=== PATIENT | male | born 1995 | race Hispanic/Latino ===

== ENCOUNTER 2016-08-29 15:33 | Inpatient (IN) | payer OTHER ==
--- NOTE | 2016-08-29 16:56 | C.PDOC ---
History Of Present Illness 20 year old patient, with no significant past medical history, presents to the ED complaining of a lump to the lateral aspect of the right lip for the past 2 years. Patient states it became inflamed a few weeks ago. He finished a course of Keflex and Bactrim without improvement. He was told to follow up with surgery. He was seen by Dr. Aguirre this morning and sent home. While eating, he pressed his tongue against the lump from inside of the mouth. He notes white pus coming out of the lump. Patient denies fever, shortness of breath, throat swelling, nausea, or vomiting. Time Seen by Provider: 08/29/16 16:10 Chief Complaint (Nursing): Abnormal Skin Integrity History Per: Patient History/Exam Limitations: no limitations Onset/Duration Of Symptoms: Worse Since (few weeks) Current Symptoms Are (Timing): Still Present Quality Of Symptoms: Swollen, Draining Severity: Mild Pain Scale Rating Of: 3 Recent travel outside of the [place]: No Past Medical History Reviewed: Historical Data, Nursing Documentation, Vital Signs Vital Signs: Last Vital Signs Temp 98 F 08/29/16 15:40 Pulse 70 08/29/16 15:40 Resp 18 08/29/16 15:40 BP 124/80 08/29/16 15:40 Pulse Ox 95 08/29/16 17:36 - [facility] Procedures TETANUS TOXOID ADMINIST (08/11/14) Family History: States: Unknown Family Hx - Social History Hx Alcohol Use: Yes Hx Substance Use: Yes - Immunization History Hx Tetanus Toxoid Vaccination: No Hx Influenza Vaccination: No Hx Pneumococcal Vaccination: No Review Of Systems Except As Marked, All Systems Reviewed And Found Negative. Constitutional: Negative for: Fever ENT: Positive for: Other (lump to lateral aspect of right lip with pus). Negative for: Throat Swelling Respiratory: Negative for: Shortness of Breath Gastrointestinal: Negative for: Nausea, Vomiting Physical Exam - Physical Exam Appears: Non-toxic, No Acute Distress Skin: Warm, Dry Head: Atraumatic, Normacephalic Eye(s): bilateral: Normal Inspection, EOMI Ear(s): Bilateral: Normal Nose: Normal Oral Mucosa: Moist Lips: Other (2 cm round, firm, tender, mass to the lateral aspect of the right corner of the lips with thick, white discharge when expressed; mild surrounding erythema) Throat: Normal Neck: Normal ROM, Supple Chest: Symmetrical Cardiovascular: Rhythm Regular Respiratory: Normal Breath Sounds, No Rales, No Rhonchi, No Wheezing Gastrointestinal/Abdominal: Soft, No Tenderness Back: Normal Inspection Extremity: Normal ROM Neurological/Psych: Oriented x3, Normal Speech, Normal Cognition Gait: Steady ED Course And Treatment - Laboratory Results Result Diagrams: 08/29/16 17:02 08/29/16 17:03 O2 Sat by Pulse Oximetry: 95 (room air) Pulse Ox Interpretation: Normal Progress Note: Plan: Labs, Rocephin, Toradol. Case discussed with Dr. Aguirre who wants the patient to be admitted for infected facial mass. He is requesting an infectious disease (Lavell Billy) and medical (Dr. Siddiqi) consult. Medical Decision Making Medical Decision Making: discussed with Dr Aguirre; will admit to his service. He requests medical and id consults;. message left for Dr Campos with office; discussed with Dr Siddiqi, medical artist notififed. [address] Campos; 2 sets bc, wound culture and mrsa screen requested. rocephin 1 gram q 12 hours requested. first dose ordered. Disposition Discussed With Dr.: Anjel Aguirre Doctor Will See Patient In The: Hospital - Disposition Disposition Time: 17:20 Condition: STABLE - Clinical Impression Clinical Impression: Acute abscess of face - PA / PAYROLL SPECIALIST / Resident Statement MD/DO has reviewed & agrees with the documentation as recorded. - Scribe Statement The provider has reviewed the documentation as recorded by the Scribe Iram Mixon All medical record entries made by the Scribe were at my direction and personally dictated by me. I have reviewed the chart and agree that the record accurately reflects my personal performance of the history, physical exam, medical decision making, and the department course for this patient. I have also personally directed, reviewed, and agree with the discharge instructions and disposition. Decision To Admit - Pt Status Changed To: Hospital Disposition Of: Observation - . Bed Request Type: Regular Patient Diagnosis: Acute abscess of face
[2016-08-29 17:12] LABS: BASO % 0.7 % (0.0-2.0); EOS # 0.2 K/uL (0.0-0.7); EOS % 2.4 % (0.0-4.0); HEMATOCRIT 43.4 % (35.0-51.0); LYMPH # 1.1 K/uL (1.0-4.3); LYMPH % 16.5 % (20.0-40.0); MEAN CELL VOLUME 85.5 fL (80.0-94.0); MEAN CORPUSCULAR HEMOGLOBIN 28.6 pg (27.0-31.0); MEAN CORPUSCULAR HGB CONC 33.4 g/dL (33.0-37.0); MEAN PLATELET VOLUME 9.7 fL (7.2-11.7); MONO # 0.7 K/uL (0.0-0.8); MONO % 9.8 % (0.0-10.0); RED CELL DISTRIBUTION WIDTH 13.6 % (11.5-14.5); WHITE BLOOD COUNT 6.8 K/uL (4.8-10.8)
[2016-08-29 17:20] LABS: CHLORIDE 100 mmol/L (98-107); POTASSIUM 4.6 mmol/L (3.6-5.2); SODIUM 134 mmol/L (132-148)
[2016-08-29 17:23] LABS: BLOOD UREA NITROGEN 14 mg/dL (9-20); CARBON DIOXIDE 26 mmol/L (22-30); GFR AFRICAN-AMERICAN > 60; GLUCOSE,RANDOM 115 mg/dL (75-110)
[2016-08-29 17:24] LABS: CALCIUM 8.4 mg/dl (8.6-10.4)
[2016-08-29] MEDS ORDERED: cefTRIAXone IV 1 gm in Dextros 50 ML IVPB ONE (17:45)
--- NOTE | 2016-08-29 19:00 | CP.PCM.CON ---
History of Present Illness - History of Present Illness History of Present Illness: INFECTIOUS DISEASE CONSULT; 20 year old patient, with no significant past medical history, presents to the ED complaining of a lump to the lateral aspect of the right lip/CHEEK for the past 2 years. Patient states it became inflamed a few weeks ago. He finished a course of Keflex and Bactrim without improvement. He was told to follow up with surgery. He was seen by Dr. Rodriguez this morning and sent home. While eating, he pressed his tongue against the lump from inside of the mouth. He notes white pus coming out of the lump. Patient denies fever, shortness of breath, throat swelling, nausea, or vomiting. INFECTIOUS DISEASE CONSULTATION REQUESTED BY DR. RODRIGUEZ. CASE DISCUSSED WITH PHYSICIAN SWEAT BAND SEPARATOR YOUSIF DIETZ AND STARTED ON iv' CEFTRIAXONE 1 G EVERY 12 HOURLY AND CLEOCIN 600 EVERY 8 HOURLY. 08/29/16 AFTER APPROPRIATE CULTURES. PMHx: denies Home medications: denies Past Surgical Hx: Myotomy for congenital pyloric stenosis (at 5 weeks old) Social Hx: reports smoking about 8 cigarettes/day, reports having a few alcoholic drinks one day a week, denies hx of illicit drug abuse works in a [employer]. IMMUNIZATION TETANUS TOXOID ADMINIST (08/11/14) ALLERGY; NKA Family History: States:AUNT -DM. mother-heart disease - Social History Hx Alcohol Use: Yes Hx Substance Use: Yes - Immunization History Hx Tetanus Toxoid Vaccination: No Hx Influenza Vaccination: No Hx Pneumococcal Vaccination: No Review of Systems - Constitutional Constitutional: absent: Chills, Fever - EENT Ears: absent: Ear Discharge, Ear Pain Nose/Mouth/Throat: Facial Pain (SMALL CYSTIC LESION RT RIGHT LOWER CHEEK NEXT TO THE LIP +VE DRESSING IN PLACE.). absent: Bleeding Gums, Change in Voice, Dental Pain, Sore Throat - Cardiovascular Cardiovascular: absent: Chest Pain, Dyspnea - Respiratory Respiratory: absent: Cough, Change in Mucous Color - Gastrointestinal Gastrointestinal: absent: Abdominal Pain, Diarrhea, Nausea, Vomiting - Genitourinary Genitourinary: absent: Dysuria, Freq UTI - Musculoskeletal Musculoskeletal: As Per HPI - Integumentary Integumentary: Wounds (RIGHT LOWER CHEEK NEXT TO THE LIP. POSITIVE DRESSING.) - Neurological Neurological: absent: Abnormal Speech, Headaches - Hematologic/Lymphatic Hematologic: As Per HPI. absent: Easy Bruising, Lymphadenopathy Past Patient History - Past Social History Smoking Status: Heavy Smoker > 10 Cigarettes Daily - PSYCHIATRIC Hx Substance Use: Yes - SURGICAL HISTORY Hx Surgeries: Yes Other/Comment: cyst removal, right eye. stomach surgery as infant - ANESTHESIA Hx Anesthesia: Yes Hx Anesthesia Reactions: No Meds Allergies/Adverse Reactions: Allergies Allergy/AdvReac Type Severity Reaction Status Date / Time No Known Allergies Allergy Verified 08/12/14 00:28 - Medications Medications: Current Medications Ceftriaxone Sodium 1 gm/ (Sodium Chloride) 100 mls @ 100 mls/hr IVPB Q12H [facility] Clindamycin Phosphate (Cleocin) 600 mg in 50 mls @ 102 mls/hr IVPB Q8H [facility] Physical Exam - Constitutional Appears: No Acute Distress - Head Exam Head Exam: NORMAL INSPECTION - Eye Exam Eye Exam: EOMI, PERRL - ENT Exam ENT Exam: Mucous Membranes Moist, Normal Oropharynx (RT.CHEEK ABSCESS/MASS- DRAINING SEROPURULENT DRAINAGE.) - Neck Exam Neck exam: Negative for: Lymphadenopathy, Normal Inspection, Tenderness, Thyromegaly - Respiratory Exam Respiratory Exam: Clear to Auscultation Bilateral, NORMAL BREATHING PATTERN - Cardiovascular Exam Cardiovascular Exam: REGULAR RHYTHM, +S1, +S2 - GI/Abdominal Exam GI & Abdominal Exam: Normal Bowel Sounds, Soft - Extremities Exam Extremities exam: Positive for: pedal pulses present. Negative for: calf tenderness, pedal edema - Neurological Exam Neurological exam: Alert, CN II-XII Intact, Normal Gait, Oriented x3, Reflexes Normal - Psychiatric Exam Psychiatric exam: Normal Mood - Skin Skin Exam: Normal Color, Warm Results - Vital Signs Recent Vital Signs: Last Vital Signs Temp 98.4 F 08/29/16 18:06 Pulse 60 08/29/16 18:06 Resp 19 08/29/16 18:06 BP 115/72 08/29/16 18:06 Pulse Ox 95 08/29/16 18:14 - Labs Result Diagrams: 08/30/16 08:05 08/30/16 08:05 Assessment & Plan (1) Acute abscess of face Status: Acute - Assessment and Plan (Free Text) Plan: pancultures esr,crp MRSA SCREEN. START iv ROCEPHIN 1 G EVERY 12 HOURLY 08/29/16 START iv cLEOCIN 600 MG EVERY 12 HOURLY 08/29/16. PATIENT FOR INCISION AND DRAINAGE IN A.M. fOLLOW-UP CULTURES TO ADJUST ANTIBIOTICS. CASE DISCUSSED WITH THE STAFF AND ER PA
[2016-08-29] MEDS ORDERED: Clindamycin 600mg/50ml D5W 600 MG/50 ML VIAL IVPB ONE (20:16)
[2016-08-29] MEDS ORDERED: HYDROmorphone 1 mg/ml ISec ONE (20:21)
[2016-08-29] MEDS: HYDROmorphone 1 mg/ml ISec IVP PRN (20:22)
[2016-08-29] MEDS: Clindamycin 600mg/50ml D5W 600 MG/50 ML VIAL IVPB SCH (20:23)
--- NOTE | 2016-08-29 21:52 | CP.PCM.HP ---
Past Patient History - Past Social History Smoking Status: Heavy Smoker > 10 Cigarettes Daily - PSYCHIATRIC Hx Substance Use: Yes - SURGICAL HISTORY Hx Surgeries: Yes Other/Comment: cyst removal, right eye. stomach surgery as - ANESTHESIA Hx Anesthesia: Yes Hx Anesthesia Reactions: No Meds Allergies/Adverse Reactions: Allergies Allergy/AdvReac Type Severity Reaction Status Date / Time No Known Allergies Allergy Verified 08/12/14 00:28 Results - Vital Signs Recent Vital Signs: Last Vital Signs Temp 98.0 F 08/29/16 20:39 Pulse 71 08/29/16 20:39 Resp 16 08/29/16 20:39 BP 157/73 H 08/29/16 20:39 Pulse Ox 97 08/29/16 20:39 - Labs Result Diagrams: 08/29/16 17:02 08/29/16 17:03 Labs: Laboratory Results - last 24 hr 08/29/16 08/29/16 19:09 19:09 ESR 7 C-React Prot High Sens > 15.00 H
--- NOTE | 2016-08-29 22:06 | CP.PCM.CON ---
History of Present Illness - History of Present Illness History of Present Illness: CC: 'abscess on right cheek' HPI: Pt is a 20 year old male with no reported past medical history who presented to ED with complaints of an abscess on his right cheek as per the recommendations of surgeon, Dr. Aguirre. Pt reports that he had a red blister on his right cheek that had been growing for the past 2 years. He reports that recently the blister had opened and had been draining pus and blood. The pt reports that he never had insurance so he was unable to have a procedure done to drain it. He reports has had taken antibiotics in the past but they failed to clear the abscess. He reports that he went to the office of Dr. Aguirre who advised him to go the hospital. Pt denies fever, chills, chest pain, shortness of breath, nausea, and vomiting. PMHx: denies Home medications: denies Allergies: NKDA Past Surgical Hx: Myotomy for congenital pyloric stenosis (at 5 weeks old) Social Hx: reports smoking about 8 cigarettes/day, reports having a few alcoholic drinks one day a week, denies hx of illicit drug abuse Family Hx: Heart Disease (mother) Review of Systems - Constitutional Constitutional: absent: Chills, Fever - EENT Eyes: absent: Blurred Vision, Discharge Ears: absent: Ear Pain Nose/Mouth/Throat: absent: Nasal Congestion - Cardiovascular Cardiovascular: absent: Chest Pain, Dyspnea, Leg Edema - Respiratory Respiratory: absent: Cough, Wheezing - Gastrointestinal Gastrointestinal: absent: Nausea, Vomiting - Genitourinary Genitourinary: absent: Dysuria - Musculoskeletal Musculoskeletal: absent: Arthralgias, Back Pain - Integumentary Integumentary: Furuncle - Neurological Neurological: absent: Abnormal Gait, Abnormal Hearing - Psychiatric Psychiatric: absent: Abnormal Sleep Pattern, Behavioral Changes, Change in Appetite - Hematologic/Lymphatic Hematologic: absent: Easy Bleeding Past Patient History - Past Social History Smoking Status: Heavy Smoker > 10 Cigarettes Daily - PSYCHIATRIC Hx Substance Use: Yes - SURGICAL HISTORY Hx Surgeries: Yes Other/Comment: cyst removal, right eye. stomach surgery as infant - ANESTHESIA Hx Anesthesia: Yes Hx Anesthesia Reactions: No Meds Allergies/Adverse Reactions: Allergies Allergy/AdvReac Type Severity Reaction Status Date / Time No Known Allergies Allergy Verified 08/12/14 00:28 - Medications Medications: Current Medications Hydromorphone HCl (Dilaudid) 1 mg IVP Q4H PRN PRN Reason: Pain, severe (8-10) Last Admin: 08/29/16 20:22 Dose: 1 mg Ceftriaxone Sodium 1 gm/ (Sodium Chloride) 100 mls @ 100 mls/hr IVPB Q12H [facility] Last Admin: 08/29/16 19:02 Dose: Not Given Clindamycin Phosphate (Cleocin) 600 mg in 50 mls @ 102 mls/hr IVPB Q8H [facility] Last Admin: 08/29/16 20:23 Dose: 102 mls/hr Sodium Chloride (Sodium Chloride 0.9%) 1,000 mls @ 100 mls/hr IV .Q10H [facility] Physical Exam - Constitutional Appears: No Acute Distress - Head Exam Head Exam: ATRAUMATIC, NORMOCEPHALIC - Eye Exam Eye Exam: EOMI - ENT Exam ENT Exam: Mucous Membranes Moist. absent: Mucous Membranes Dry - Respiratory Exam Respiratory Exam: Clear to Auscultation Bilateral. absent: Rales, Rhonchi, Wheezes - Cardiovascular Exam Cardiovascular Exam: +S1, +S2. absent: Gallop, Rubs - GI/Abdominal Exam GI & Abdominal Exam: Soft. absent: Distended, Tenderness - Extremities Exam Extremities exam: Positive for: full ROM. Negative for: pedal edema - Neurological Exam Neurological exam: Alert, Oriented x3 - Psychiatric Exam Psychiatric exam: Normal Affect - Skin Additional comments: Right cheek abscess, erythematous, nondraining Results - Vital Signs Recent Vital Signs: Last Vital Signs Temp 98.0 F 08/29/16 20:39 Pulse 71 08/29/16 20:39 Resp 16 08/29/16 20:39 BP 157/73 H 08/29/16 20:39 Pulse Ox 97 08/29/16 20:39 - Labs Result Diagrams: 08/29/16 17:02 08/29/16 17:03 Labs: Laboratory Results - last 24 hr 08/29/16 08/29/16 19:09 19:09 ESR 7 C-React Prot High Sens > 15.00 H Assessment & Plan - Assessment and Plan (Free Text) Assessment: Right cheek abscess: Afebrile, nontachycardic No leukocytosis Plan is for I&D tomorrow as per Dr. Aguirre NPO after midnight ID, Dr. Daniel Campos, consulted. Help appreciated. Clindamycin 600 mg IV q8h Wound cultures, blood cultures pending Prophylactic Measures: DVT: SCDs GI: Protonix 40 mg po qd
[2016-08-29] MEDS: Sodium Chloride 0.9% 1,000 ML IV SCH (23:02)
[2016-08-30] MEDS: HYDROmorphone 1 mg/ml ISec IVP PRN ×4 (01:12→22:13)
[2016-08-30] MEDS: Clindamycin 600mg/50ml D5W 600 MG/50 ML VIAL IVPB SCH ×3 (03:56→18:05)
--- NOTE | 2016-08-30 07:22 | CP.PCM.PN ---
<Jackie Sal - Last Filed: 08/30/16 13:20> Subjective - Date & Time of Evaluation Date of Evaluation: 08/30/16 Time of Evaluation: 09:45 - Subjective Subjective: PGY1 Medicine note for Dr. Siddiqi Patient seen and examined at bedside. Patient has been NPO overnight for OR today with Dr. Aguirre for I&D of abscess. Patient denied much pain at area unless it is touched. He reports that it was squeezed to express some purulent discharge in the ED but it did not drain overnight. Patient denied any headaches , dizziness, fever, chills, chest pain, palpitations, shortness of breath, cough , abdominal pain, nausea, vomiting, bowel/bladder complaints, pain in his legs bilaterally. Objective - Vital Signs/Intake and Output Vital Signs (last 24 hours): Temp Pulse Resp BP Pulse Ox 98.4 F 64 20 118/72 97 08/30/16 00:00 08/30/16 00:00 08/30/16 00:00 08/30/16 00:00 08/29/16 20:39 Intake and Output: 08/30/16 08/30/16 06:59 18:59 Intake Total 800 Balance 800 - Medications Medications: Current Medications Hydromorphone HCl (Dilaudid) 1 mg IVP Q4H PRN PRN Reason: Pain, severe (8-10) Last Admin: 08/30/16 01:12 Dose: 1 mg Ceftriaxone Sodium 1 gm/ (Sodium Chloride) 100 mls @ 100 mls/hr IVPB Q12H [facility] Last Admin: 08/30/16 06:46 Dose: 100 mls/hr Clindamycin Phosphate (Cleocin) 600 mg in 50 mls @ 102 mls/hr IVPB Q8H [facility] Last Admin: 08/30/16 03:56 Dose: 102 mls/hr Sodium Chloride (Sodium Chloride 0.9%) 1,000 mls @ 100 mls/hr IV .Q10H [facility] Last Admin: 08/29/16 23:02 Dose: 100 mls/hr Pneumococcal Polyvalent Vaccine (Pneumovax 23 Vaccine) 0.5 ml IM .ONCE ONE Stop: 08/31/16 10:01 - Labs Labs: PT 11.4 SECONDS (9.7-12.2) 08/29/16 17:02 INR 1.0 08/29/16 17:02 APTT 35 SECONDS (21-34) H 08/29/16 17:02 - Constitutional Appears: Non-toxic, No Acute Distress - Head Exam Head Exam: ATRAUMATIC, NORMAL INSPECTION, NORMOCEPHALIC - Eye Exam Eye Exam: EOMI, Normal appearance, PERRL. absent: Conjunctival injection, Scleral icterus Pupil Exam: NORMAL ACCOMODATION - ENT Exam ENT Exam: Mucous Membranes Moist - Neck Exam Neck Exam: Normal Inspection. absent: Lymphadenopathy, Tenderness - Respiratory Exam Respiratory Exam: Clear to Ausculation Bilateral, NORMAL BREATHING PATTERN. absent: Accessory Muscle Use, Rales, Rhonchi, Wheezes, Respiratory Distress - Cardiovascular Exam Cardiovascular Exam: REGULAR RHYTHM, RRR, +S1, +S2 - GI/Abdominal Exam GI & Abdominal Exam: Soft, Normal Bowel Sounds. absent: Firm, Guarding, Rigid, Tenderness - Rectal Exam Rectal Exam: Deferred - Extremities Exam Extremities Exam: Normal Capillary Refill, Normal Inspection. absent: Pedal Edema, Tenderness - Back Exam Back Exam: NORMAL INSPECTION. absent: rash noted - Neurological Exam Neurological Exam: Alert, Awake, Oriented x3 - Psychiatric Exam Psychiatric exam: Normal Affect, Normal Mood - Skin Skin Exam: Dry, Erythema (abscess on right corner of lips- mild), Intact, Normal Color, Warm Additional comments: 2 cm round, firm, tender, mass to the lateral aspect of the right corner of the lips Assessment and Plan - Assessment and Plan (Free Text) Assessment: 20 year old male with no reported past medical history who presented to ED with complaints of an abscess on his right cheek Plan: Right cheek abscess: -Afebrile with no leukocytosis -For I&D with Dr. Aguirre 08/31 -Rocephin IVPB Q12 -Clindamycin 600mg IVPB Q8 -Dilaudid 1mg IVP Q4 for pain -NS @ 100cc/hr -f/u wound culture -f/u blood culture x 2 -ID Dr. Daniel Campos on board -Surgery Dr. Aguirre on board Prophylactic Measures: -SCDs -Protonix 40 mg po qd -NPO past midnight for procedure -VTE ppx held for procedure Will discuss plan with Dr. Neeru Sal PGY1 <Boo Siddiqi Jr. - Last Filed: 09/04/16 10:03> Objective - Vital Signs/Intake and Output Vital Signs (last 24 hours): Temp Pulse Resp BP Pulse Ox 98.1 F 58 L 20 115/68 96 09/01/16 08:13 09/01/16 08:30 09/01/16 08:13 09/01/16 08:13 09/01/16 08:13 - Labs Labs: 09/01/16 07:07 09/01/16 07:07 PT 11.4 SECONDS (9.7-12.2) 08/29/16 17:02 INR 1.0 08/29/16 17:02 APTT 35 SECONDS (21-34) H 08/29/16 17:02 Attending/Attestation - Attestation I have personally seen and examined this patient.: Yes I have fully participated in the care of the patient.: Yes I have reviewed all pertinent clinical information, including history, physical exam and plan: Yes Notes (Text): 09/04/16 10:03 Agree with resident note and findings
[2016-08-30] MEDS: Sodium Chloride 0.9% 1,000 ML IV SCH ×2 (08:02→22:26)
[2016-08-30 08:24] LABS: BASO % 0.5 % (0.0-2.0); EOS # 0.2 K/uL (0.0-0.7); HEMATOCRIT 41.6 % (35.0-51.0); LYMPH # 1.7 K/uL (1.0-4.3); LYMPH % 20.9 % (20.0-40.0); MEAN CELL VOLUME 86.1 fL (80.0-94.0); MEAN CORPUSCULAR HEMOGLOBIN 28.8 pg (27.0-31.0); MEAN CORPUSCULAR HGB CONC 33.5 g/dL (33.0-37.0); MONO # 0.8 K/uL (0.0-0.8); MONO % 10.3 % (0.0-10.0); NRBC % 0.1 % (0.0-2.0); RED CELL DISTRIBUTION WIDTH 13.3 % (11.5-14.5); WHITE BLOOD COUNT 8.1 K/uL (4.8-10.8)
[2016-08-30 09:16] LABS: CHLORIDE 101 mmol/L (98-107); POTASSIUM 4.3 mmol/L (3.6-5.2)
[2016-08-30 09:18] LABS: AST/SGOT 43 U/L (17-59); BILIRUBIN,TOTAL 0.5 mg/dL (0.2-1.3); CARBON DIOXIDE 22 mmol/L (22-30); GFR AFRICAN-AMERICAN > 60
[2016-08-30 09:19] LABS: ALB/GLOB RATIO 1.5 (1.0-2.1); ALKALINE PHOSPHATASE 59 U/L (38-126); ALT/SGPT 29 U/L (21-72); BLOOD UREA NITROGEN 10 mg/dL (9-20); CALCIUM 7.8 mg/dl (8.6-10.4); GLUCOSE,RANDOM 87 mg/dL (75-110); MAGNESIUM 1.9 mg/dL (1.6-2.3); PHOSPHOROUS 3.7 mg/dL (2.5-4.5); TOTAL PROTEIN 5.9 g/dL (6.3-8.3)
[2016-08-30 09:32] LABS: SODIUM 134 mmol/L (132-148)
[2016-08-30] MEDS ORDERED: Propofol 10 mg/ml Inj (20 ML) ONE (14:33)
[2016-08-30] MEDS ORDERED: Midazolam 2 MG/2 ML VIAL ONE (14:33)
[2016-08-30] MEDS ORDERED: HYDROmorphone 0.5 mg/0.5 ml ISec ONE (15:13)
[2016-08-30] MEDS: HYDROmorphone 0.5 mg/0.5 ml ISec IVP PRN ×2 (15:14→15:29)
--- NOTE | 2016-08-30 15:47 | OP ---
PROCEDURE DATE: 08/30/2016 PREOPERATIVE DIAGNOSIS: Abscess of the face. POSTOPERATIVE DIAGNOSIS: Abscess of the face. PROCEDURE PERFORMED: Excision of infected mass of the face with drainage of abscess and partial tiss ue transfer closure. SURGEON: Anjel Aguirre MD ANESTHESIA: General. BLOOD LOSS: 40 mL. POSTOPERATIVE CONDITION: Stable. PROCEDURE: The patient taken to the operating room were general anesthesia was administered, and the right cheek and lip area were prepped and draped. There was an abscess located just lateral to the right side of the lip which was almost a golf ball size mass yesterday but had decreased dramatically sense it had spontaneously drained. The opening on the anterior portion of the face was widened usi ng a clamp and pus, blood and cystic material all were expelled. The cyst material was aggressively removed from the wound until the wound was completely clean. A branch of the facial artery was noted to be bleeding and repaired. The wound was irrigated with copious amounts of saline solution. Part ial tissue transfer was performed and the central portion of the wound was packed open with iodoform. The patient tolerated procedure well, returned to recovery room in stable condition. Anjel Aguirre MD cc: [id number] TT: 08/30/2016 15:46:51 sc
--- NOTE | 2016-08-30 17:24 | CP.PCM.PN ---
Subjective - Date & Time of Evaluation Date of Evaluation: 08/30/16 Time of Evaluation: 17:16 - Subjective Subjective: CHIEF COMPLAINTS TODAY : afebrile Patient seen in OR today s/p incision and drainage of right cheek abscess. Dressing in place. ROS. HEENT : N. RT. FACE NEAR LIP DRESSING IN PLACE . DRESSING DRY AND CLEAN Resp : No SOB wheezing, cough Cardio : No CP, PND orthopnea GI : No abd. Pain, n/v HSE ADVISOR : No headache , focal deficit. Musculoskel : N Ext. : Pedal pulses intact, no edema or calf pain Derm : N Psych : N. PE. Pt. is alert awake in no distress. V.S As noted in the chart Head ,ear nose,throat and eyes : RT. FACE NEAR LIP DRESSING IN PLACE . DRESSING DRY AND CLEAN Neck : Supple with normal carotids. Lungs: Clear air entry. Heart : S1 & S2 normal . . No murmur. S4 + Abd : Soft non tender with normal bowel sounds. Neuro : Moves all ext. with no localized deficit. Ext : No edema with intact pulses. Neg. calf tenderness Derm : No rashes or decubitus ulcer. Radiology/Labs . WOUND CULTURE-PENDING mrsa SCREEN PENDING Asssessment : ABSCESS / CYST RT. CHEEK NEAR LIP S/P I & D 08/30/16 Plan : fOLLOW-UP CULTURES TO ADJUST ANTIBIOTICS. CONTINUE iv CEFTRIAXONE 1 G EVERY 12 HOURLY. 08/29/16. CONTINUE iv cLEOCIN 600 MG EVERY 8 HOURLY. 08/29/16 PATIENT HAD FAILED OUTPATIENT THERAPY WITH BY MOUTH bACTRIM/AND BY MOUTH kEFLEX. CASE DISCUSSED WITH OR STAFF IN MICU . MOTHER AT BEDSIDE. Objective - Vital Signs/Intake and Output Vital Signs (last 24 hours): Temp Pulse Resp BP Pulse Ox 98 F 69 12 127/82 97 08/30/16 16:00 08/30/16 16:00 08/30/16 16:00 08/30/16 16:00 08/30/16 16:00 Intake and Output: 08/30/16 08/30/16 06:59 18:59 Intake Total 800 1750 Balance 800 1750 - Medications Medications: Current Medications Hydromorphone HCl (Dilaudid) 1 mg IVP Q4H PRN PRN Reason: Pain, severe (8-10) Last Admin: 08/30/16 10:01 Dose: 1 mg Hydromorphone HCl (Dilaudid) 0.5 mg IVP Q10M PRN PRN Reason: Pain, moderate (4-7) Stop: 08/30/16 17:25 Last Admin: 08/30/16 15:29 Dose: 0.5 mg Ceftriaxone Sodium 1 gm/ (Sodium Chloride) 100 mls @ 100 mls/hr IVPB Q12H [facility] Last Admin: 08/30/16 06:46 Dose: 100 mls/hr Clindamycin Phosphate (Cleocin) 600 mg in 50 mls @ 102 mls/hr IVPB Q8H [facility] Last Admin: 08/30/16 10:01 Dose: 102 mls/hr Sodium Chloride (Sodium Chloride 0.9%) 1,000 mls @ 100 mls/hr IV .Q10H [facility] Last Admin: 08/30/16 08:02 Dose: Not Given Lactated Ringer's (Lactated Ringer's) 1,000 mls @ 150 mls/hr IV .Q6H40M [facility] Pantoprazole Sodium (Protonix Ec Tab) 40 mg PO DAILY [facility] Pneumococcal Polyvalent Vaccine (Pneumovax 23 Vaccine) 0.5 ml IM .ONCE ONE Stop: 08/31/16 10:01 Tramadol HCl (Ultram) 25 mg PO TID [facility] - Labs Labs: 08/30/16 08:05 08/30/16 08:05 PT 11.4 SECONDS (9.7-12.2) 08/29/16 17:02 INR 1.0 08/29/16 17:02 APTT 35 SECONDS (21-34) H 08/29/16 17:02
[2016-08-30] MEDS ORDERED: Tramadol 25 mg PO SCH (18:00)
[2016-08-30] MEDS: Lactated Ringer's 1,000 ML IV SCH (22:25)
[2016-08-31] MEDS: HYDROmorphone 1 mg/ml ISec IVP PRN ×3 (02:55→18:24)
[2016-08-31] MEDS: Clindamycin 600mg/50ml D5W 600 MG/50 ML VIAL IVPB SCH ×3 (03:00→18:30)
[2016-08-31] MEDS: Sodium Chloride 0.9% 1,000 ML IV SCH (03:00)
[2016-08-31] MEDS: Lactated Ringer's 1,000 ML IV SCH ×3 (05:05→20:24)
[2016-08-31 08:43] LABS: BASO % 0.7 % (0.0-2.0); EOS # 0.2 K/uL (0.0-0.7); EOS % 4.2 % (0.0-4.0); HEMATOCRIT 40.7 % (35.0-51.0); LYMPH # 1.9 K/uL (1.0-4.3); LYMPH % 31.9 % (20.0-40.0); MEAN CORPUSCULAR HEMOGLOBIN 28.6 pg (27.0-31.0); MEAN CORPUSCULAR HGB CONC 33.2 g/dL (33.0-37.0); MEAN PLATELET VOLUME 9.9 fL (7.2-11.7); MONO # 0.5 K/uL (0.0-0.8); MONO % 8.1 % (0.0-10.0); NRBC % 0.1 % (0.0-2.0); RED CELL DISTRIBUTION WIDTH 13.7 % (11.5-14.5); WHITE BLOOD COUNT 5.8 K/uL (4.8-10.8)
[2016-08-31 08:51] LABS: ALB/GLOB RATIO 1.2 (1.0-2.1); ALKALINE PHOSPHATASE 67 U/L (38-126); ALT/SGPT 32 U/L (21-72); AST/SGOT 16 U/L (17-59); BILIRUBIN,TOTAL < 0.1 mg/dL (0.2-1.3); BLOOD UREA NITROGEN 9 mg/dL (9-20); CALCIUM 8.4 mg/dl (8.6-10.4); CARBON DIOXIDE 26 mmol/L (22-30); CHLORIDE 101 mmol/L (98-107); GFR AFRICAN-AMERICAN > 60; GLUCOSE,RANDOM 90 mg/dL (75-110); MAGNESIUM 1.8 mg/dL (1.6-2.3); PHOSPHOROUS 5.2 mg/dL (2.5-4.5); POTASSIUM 4.2 mmol/L (3.6-5.2); SODIUM 136 mmol/L (132-148); TOTAL PROTEIN 5.9 g/dL (6.3-8.3)
[2016-08-31] MEDS ORDERED: Pneumococcal 23-Valent Vaccine IM ONE (10:00)
[2016-08-31] MEDS: Pantoprazole 40 mg EC Tab PO SCH (10:28)
[2016-08-31] MEDS ORDERED: Midazolam 2 MG/2 ML VIAL ONE (12:43)
[2016-08-31] MEDS ORDERED: Propofol 10 mg/ml Inj (20 ML) ONE ×2 (12:43→13:10)
[2016-08-31] MEDS ORDERED: Succinylcholine Chloride 20 mg/ml Syr (5 ml) IV ONE (12:45)
[2016-08-31] MEDS ORDERED: Lactated Ringer's 1,000 ML IV ONE (12:50)
[2016-08-31] MEDS ORDERED: Bacitracin Ointment 30 GM TUBE ONE (13:15)
[2016-08-31] MEDS ORDERED: HYDROmorphone 0.5 mg/0.5 ml ISec IVP PRN (13:41)
[2016-08-31] MEDS ORDERED: Tramadol 25 mg PO PRN ×2 (14:00→14:06)
--- NOTE | 2016-08-31 14:47 | OP ---
PROCEDURE DATE: 08/29/2016 PREOPERATIVE DIAGNOSIS: Facial abscess, status post incision and drainage. POSTOPERATIVE DIAGNOSIS: Facial abscess, status post incision and drainage. PROCEDURE PERFORMED: Change of packing under anesthesia with re-debridement, re-drainage of abscess and adjacent tissue transfer closure. SURGEON: Anjel Aguirre MD. ANESTHESIA: General. ESTIMATED BLOOD LOSS: 10 mL. POSTOPERATIVE CONDITION: Stable. INDICATIONS FOR SURGERY: This 20-year-old male presents with a facial abscess, status post I and D y esterday. Today, he was taken back to the OR for redebridement and possible closure of the wound. PROCEDURE: The patient taken to the operating room. General anesthesia administered. After the pac zelalem was removed, the right facial area was prepped and draped. The wound was aggressively debrided and all remaining collections were drained and cultured. Bleeding was controlled using the Bovie. T he wound was then pulse irrigated with 4 liters of saline. Tissue flaps were raised and adjacent tis jose luis transfer closure was performed using 3-0 Monocryl. This was performed centrally. The lateral po rtions were left open for drainage. The patient tolerated procedure well, returned to recovery room in stable condition. Anjel Aguirre MD cc: [id number] TT: 08/31/2016 14:47:16 tiny
[2016-08-31 16:33] VITALS: RESP 20; O2SAT 96
--- NOTE | 2016-08-31 18:19 | CP.PCM.PN ---
<Jackie Sal - Last Filed: 08/31/16 18:15> Subjective - Date & Time of Evaluation Date of Evaluation: 08/31/16 Time of Evaluation: 07:45 - Subjective Subjective: PGY1 Medicine Note for Dr. Siddiqi Patient seen and examined at bedside. Patient is POD#[address] Aguirre. Patient reports pain is controlled. Patient denied fever, chills, chest pain, palpitations, SOB, cough, abdominal pain, nausea, vomiting, bowel/bladder complaints, pain in his legs b/l. Patient is due for a second I&D this afternoon. Objective - Vital Signs/Intake and Output Vital Signs (last 24 hours): Temp Pulse Resp BP Pulse Ox 98.3 F 58 L 20 146/83 96 08/31/16 16:00 08/31/16 16:00 08/31/16 16:00 08/31/16 16:00 08/31/16 16:00 - Medications Medications: Current Medications Hydromorphone HCl (Dilaudid) 1 mg IVP Q6H PRN PRN Reason: Pain, moderate (4-7) Ceftriaxone Sodium 1 gm/ (Sodium Chloride) 100 mls @ 100 mls/hr IVPB Q12H [facility] Last Admin: 08/31/16 06:21 Dose: 100 mls/hr Clindamycin Phosphate (Cleocin) 600 mg in 50 mls @ 102 mls/hr IVPB Q8H [facility] Last Admin: 08/31/16 10:28 Dose: 102 mls/hr Sodium Chloride (Sodium Chloride 0.9%) 1,000 mls @ 100 mls/hr IV .Q10H [facility] Last Admin: 08/31/16 03:00 Dose: 100 mls/hr Lactated Ringer's (Lactated Ringer's) 1,000 mls @ 150 mls/hr IV .Q6H40M [facility] Last Admin: 08/31/16 05:05 Dose: Not Given Pantoprazole Sodium (Protonix Ec Tab) 40 mg PO DAILY [facility] Last Admin: 08/31/16 10:28 Dose: 40 mg Tramadol HCl (Ultram) 25 mg PO TID PRN PRN Reason: Pain, severe (8-10) - Labs Labs: PT 11.4 SECONDS (9.7-12.2) 08/29/16 17:02 INR 1.0 05/09/17 17:02 APTT 35 SECONDS (21-34) H 08/29/16 17:02 - Constitutional Appears: Non-toxic, No Acute Distress - Head Exam Head Exam: ATRAUMATIC, NORMAL INSPECTION, NORMOCEPHALIC - Eye Exam Eye Exam: Normal appearance. absent: Conjunctival injection, Scleral icterus - ENT Exam ENT Exam: Mucous Membranes Moist Additional comments: dressing c/d/i - Neck Exam Neck Exam: Normal Inspection. absent: Tenderness - Respiratory Exam Respiratory Exam: Clear to Ausculation Bilateral, NORMAL BREATHING PATTERN. absent: Accessory Muscle Use, Rales, Rhonchi, Wheezes, Respiratory Distress - Cardiovascular Exam Cardiovascular Exam: REGULAR RHYTHM, RRR, +S1, +S2. absent: Murmur - GI/Abdominal Exam GI & Abdominal Exam: Soft, Normal Bowel Sounds. absent: Firm, Guarding, Rigid, Tenderness - Rectal Exam Rectal Exam: Deferred - Extremities Exam Extremities Exam: Normal Capillary Refill, Normal Inspection. absent: Pedal Edema, Tenderness - Back Exam Back Exam: NORMAL INSPECTION - Neurological Exam Neurological Exam: Alert, Awake, Oriented x3 - Psychiatric Exam Psychiatric exam: Normal Affect, Normal Mood - Skin Skin Exam: Dry, Intact, Normal Color, Warm Assessment and Plan - Assessment and Plan (Free Text) Assessment: 20 year old male with no reported past medical history who presented to ED with complaints of an abscess on his right cheek Plan: Right cheek abscess: -POD#1 I&D -Afebrile with no leukocytosis -For I&D with Dr. Aguirre 09/01 -Rocephin IVPB Q12 -Clindamycin 600mg IVPB Q8 -Dilaudid 1mg IVP Q6 for pain -Tramadol 25mg PO TID PRN pain -LR @ 150cc/hr -wound culture: coag neg staph -repeat wound culture negative -blood culture negative x 2 -ID Dr. Daniel Campos on board -Surgery Dr. Aguirre on board Prophylactic Measures: -SCDs -Protonix 40 mg po qd -NPO past midnight for procedure -VTE ppx held for procedure Plan discussed with with Dr. Neeru Sal PGY1 <Boo Siddiqi Jr. - Last Filed: 09/04/16 10:04> Objective - Vital Signs/Intake and Output Vital Signs (last 24 hours): Temp Pulse Resp BP Pulse Ox 98.1 F 58 L 20 115/68 96 09/01/16 08:13 09/01/16 08:30 09/01/16 08:13 09/01/16 08:13 09/01/16 08:13 - Labs Labs: 09/01/16 07:07 09/01/16 07:07 PT 11.4 SECONDS (9.7-12.2) 08/29/16 17:02 INR 1.0 08/29/16 17:02 APTT 35 SECONDS (21-34) H 08/29/16 17:02 Attending/Attestation - Attestation I have personally seen and examined this patient.: Yes I have fully participated in the care of the patient.: Yes I have reviewed all pertinent clinical information, including history, physical exam and plan: Yes Notes (Text): 09/04/16 10:04 Agree with resident note and findings
--- NOTE | 2016-08-31 23:06 | CP.PCM.PN ---
Subjective - Date & Time of Evaluation Date of Evaluation: 08/31/16 Time of Evaluation: 23:06 - Subjective Subjective: CHIEF COMPLAINTS TODAY : afebrile Patient seen and examined s/p incision and drainage of right cheek abscess 2nd time Dressing in place. ROS. HEENT : N. RT. FACE NEAR LIP DRESSING IN PLACE wound claean +ve cellulitus at site . DRESSING DRY AND CLEAN Resp : No SOB wheezing, cough Cardio : No CP, PND orthopnea GI : No abd. 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 Musculoskel : N Ext. : Pedal pulses intact, no edema or calf pain Derm : N Psych : N. PE. Pt. is alert awake in no distress. V.S As noted in the chart Head ,ear nose,throat and eyes : RT. FACE NEAR LIP DRESSING IN PLACE. WOUND HEALING. . DRESSING DRY AND CLEAN Neck : Supple with normal carotids. Lungs: Clear air entry. Heart : S1 & S2 normal . . No murmur. S4 + Abd : Soft non tender with normal bowel sounds. Neuro : Moves all ext. with no localized deficit. Ext : No edema with intact pulses. Neg. calf tenderness Derm : No rashes or decubitus ulcer. Radiology/Labs . WOUND CULTURE-SCN MRSA SCREEN -VE Asssessment : ABSCESS / CYST RT. CHEEK NEAR LIP S/P I & D 08/30/16. 08/31/16 Plan : CONTINUE iv CEFTRIAXONE 1 G EVERY 12 HOURLY. 08/29/16. CONTINUE iv CLEOCIN 600 MG EVERY 8 HOURLY. 08/29/16 CASE DISCUSSED WITH STAFF.. MOTHER AT BEDSIDE. Objective - Vital Signs/Intake and Output Vital Signs (last 24 hours): Temp Pulse Resp BP Pulse Ox 98.3 F 58 L 20 146/83 96 08/31/16 16:00 08/31/16 16:00 08/31/16 16:00 08/31/16 16:00 08/31/16 16:00 Intake and Output: 08/31/16 09/01/16 18:59 06:59 Intake Total 1200 Balance 1200 - Medications Medications: Current Medications Hydromorphone HCl (Dilaudid) 1 mg IVP Q6H PRN PRN Reason: Pain, moderate (4-7) Last Admin: 08/31/16 18:24 Dose: 1 mg Ceftriaxone Sodium 1 gm/ (Sodium Chloride) 100 mls @ 100 mls/hr IVPB Q12H [facility] Last Admin: 08/31/16 18:31 Dose: 100 mls/hr Clindamycin Phosphate (Cleocin) 600 mg in 50 mls @ 102 mls/hr IVPB Q8H [facility] Last Admin: 08/31/16 18:30 Dose: 102 mls/hr Sodium Chloride (Sodium Chloride 0.9%) 1,000 mls @ 100 mls/hr IV .Q10H [facility] Last Admin: 08/31/16 03:00 Dose: 100 mls/hr Lactated Ringer's (Lactated Ringer's) 1,000 mls @ 150 mls/hr IV .Q6H40M [facility] Last Admin: 08/31/16 20:24 Dose: 150 mls/hr Pantoprazole Sodium (Protonix Ec Tab) 40 mg PO DAILY [facility] Last Admin: 08/31/16 10:28 Dose: 40 mg Tramadol HCl (Ultram) 25 mg PO TID PRN PRN Reason: Pain, severe (8-10) - Labs Labs: PT 11.4 SECONDS (9.7-12.2) 08/29/16 17:02 INR 1.0 08/29/16 17:02 APTT 35 SECONDS (21-34) H 08/29/16 17:02
[2016-09-01] MEDS: Sodium Chloride 0.9% 1,000 ML IV SCH ×2 (00:04→11:11)
[2016-09-01] MEDS: HYDROmorphone 1 mg/ml ISec IVP PRN (00:35)
[2016-09-01] MEDS: Lactated Ringer's 1,000 ML IV SCH ×2 (02:48→08:19)
[2016-09-01] MEDS: Clindamycin 600mg/50ml D5W 600 MG/50 ML VIAL IVPB SCH ×2 (02:52→11:09)
[2016-09-01 07:32] LABS: BASO % 0.3 % (0.0-2.0); EOS % 0.2 % (0.0-4.0); LYMPH # 1.3 K/uL (1.0-4.3); LYMPH % 13.2 % (20.0-40.0); MEAN CORPUSCULAR HEMOGLOBIN 28.8 pg (27.0-31.0); MEAN CORPUSCULAR HGB CONC 33.9 g/dL (33.0-37.0); MEAN PLATELET VOLUME 10.1 fL (7.2-11.7); MONO # 0.6 K/uL (0.0-0.8); MONO % 6.7 % (0.0-10.0); RED CELL DISTRIBUTION WIDTH 13.1 % (11.5-14.5)
[2016-09-01 07:36] LABS: WHITE BLOOD COUNT 9.7 K/uL (4.8-10.8)
[2016-09-01 07:48] LABS: CHLORIDE 99 mmol/L (98-107)
[2016-09-01 07:49] LABS: POTASSIUM 3.8 mmol/L (3.6-5.2); SODIUM 135 mmol/L (132-148)
[2016-09-01 07:51] LABS: BILIRUBIN,TOTAL 0.5 mg/dL (0.2-1.3); CARBON DIOXIDE 28 mmol/L (22-30); GFR AFRICAN-AMERICAN > 60
[2016-09-01 07:52] LABS: ALB/GLOB RATIO 1.3 (1.0-2.1); ALKALINE PHOSPHATASE 63 U/L (38-126); ALT/SGPT 26 U/L (21-72); AST/SGOT 16 U/L (17-59); BLOOD UREA NITROGEN 8 mg/dL (9-20); CALCIUM 8.3 mg/dl (8.6-10.4); GLUCOSE,RANDOM 99 mg/dL (75-110); MAGNESIUM 1.8 mg/dL (1.6-2.3); PHOSPHOROUS 4.5 mg/dL (2.5-4.5); TOTAL PROTEIN 6.3 g/dL (6.3-8.3)
[2016-09-01 08:14] VITALS: BP 115/68; TEMP 98.1
[2016-09-01] MEDS: Pantoprazole 40 mg EC Tab PO SCH (11:10)
--- NOTE | 2016-09-01 11:14 | CP.PCM.PN ---
<Amelia Jones - Last Filed: 09/01/16 11:11> Subjective - Date & Time of Evaluation Date of Evaluation: 09/01/16 Time of Evaluation: 09:00 - Subjective Subjective: Medicine Progress Note Patient seen and examined. Patient has no acute complaints. Scheduled for repeat I&D with Dr Aguirre today and then discharge home. 12 point ROS negative at this time. Objective - Vital Signs/Intake and Output Vital Signs (last 24 hours): Temp Pulse Resp BP Pulse Ox 98.1 F 47 L 20 115/68 96 09/01/16 08:13 09/01/16 08:13 09/01/16 08:13 09/01/16 08:13 09/01/16 08:13 Intake and Output: 09/01/16 09/01/16 06:59 18:59 Intake Total 1999 Balance 1999 - Medications Medications: Current Medications Hydromorphone HCl (Dilaudid) 1 mg IVP Q6H PRN PRN Reason: Pain, moderate (4-7) Last Admin: 09/01/16 00:35 Dose: 1 mg Ceftriaxone Sodium 1 gm/ (Sodium Chloride) 100 mls @ 100 mls/hr IVPB Q12H [facility] Last Admin: 09/01/16 06:01 Dose: 100 mls/hr Clindamycin Phosphate (Cleocin) 600 mg in 50 mls @ 102 mls/hr IVPB Q8H [facility] Last Admin: 09/01/16 11:09 Dose: 102 mls/hr Sodium Chloride (Sodium Chloride 0.9%) 1,000 mls @ 100 mls/hr IV .Q10H [facility] Last Admin: 09/01/16 11:11 Dose: Not Given Lactated Ringer's (Lactated Ringer's) 1,000 mls @ 150 mls/hr IV .Q6H40M [facility] Last Admin: 09/01/16 08:19 Dose: Not Given Pantoprazole Sodium (Protonix Ec Tab) 40 mg PO DAILY [facility] Last Admin: 09/01/16 11:10 Dose: 40 mg Tramadol HCl (Ultram) 25 mg PO TID PRN PRN Reason: Pain, severe (8-10) - Labs Labs: 09/01/16 07:07 09/01/16 07:07 PT 11.4 SECONDS (9.7-12.2) 08/29/16 17:02 INR 1.0 08/29/16 17:02 APTT 35 SECONDS (21-34) H 08/29/16 17:02 - Additional Findings Additional findings: - Constitutional Appears: Non-toxic, No Acute Distress - Head Exam Head Exam: ATRAUMATIC, NORMAL INSPECTION, NORMOCEPHALIC - Eye Exam Eye Exam: Normal appearance. absent: Conjunctival injection, Scleral icterus - ENT Exam ENT Exam: Mucous Membranes Moist Additional comments: dressing c/d/i - Neck Exam Neck Exam: Normal Inspection. absent: Tenderness - Respiratory Exam Respiratory Exam: Clear to Ausculation Bilateral, NORMAL BREATHING PATTERN. absent: Accessory Muscle Use, Rales, Rhonchi, Wheezes, Respiratory Distress - Cardiovascular Exam Cardiovascular Exam: REGULAR RHYTHM, RRR, +S1, +S2. absent: Murmur - GI/Abdominal Exam GI & Abdominal Exam: Soft, Normal Bowel Sounds. absent: Firm, Guarding, Rigid, Tenderness - Rectal Exam Rectal Exam: Deferred - Extremities Exam Extremities Exam: Normal Capillary Refill, Normal Inspection. absent: Pedal Edema, Tenderness - Back Exam Back Exam: NORMAL INSPECTION - Neurological Exam Neurological Exam: Alert, Awake, Oriented x3 - Psychiatric Exam Psychiatric exam: Normal Affect, Normal Mood - Skin Skin Exam: Dry, Intact, Normal Color, Warm Assessment and Plan - Assessment and Plan (Free Text) Assessment: Right cheek abscess: -POD#2 I&D with repeat I&D today -Afebrile with no leukocytosis -Rocephin IVPB Q12 -Clindamycin 600mg IVPB Q8 -Dilaudid 1mg IVP Q6 for pain -Tramadol 25mg PO TID PRN pain -wound culture: coag neg staph -repeat wound culture negative -blood culture negative x 2 -ID Dr. Daniel Campos on board -Surgery Dr. Aguirre on board Prophylactic Measures: -SCDs -Protonix 40 mg po qd -VTE ppx held for procedure - stable for discharge home Plan discussed with with Dr. Siddiqi <Boo Siddiqi Jr. - Last Filed: 09/04/16 10:06> Objective - Vital Signs/Intake and Output Vital Signs (last 24 hours): Temp Pulse Resp BP Pulse Ox 98.1 F 58 L 20 115/68 96 09/01/16 08:13 09/01/16 08:30 09/01/16 08:13 09/01/16 08:13 09/01/16 08:13 - Labs Labs: 09/01/16 07:07 09/01/16 07:07 PT 11.4 SECONDS (9.7-12.2) 08/29/16 17:02 INR 1.0 08/29/16 17:02 APTT 35 SECONDS (21-34) H 08/29/16 17:02 Attending/Attestation - Attestation I have personally seen and examined this patient.: Yes I have fully participated in the care of the patient.: Yes I have reviewed all pertinent clinical information, including history, physical exam and plan: Yes Notes (Text): 09/04/16 10:06 Agree with resident note and findings
--- NOTE | 2016-09-01 11:48 | CP.PCM.PN ---
Subjective - Date & Time of Evaluation Date of Evaluation: 09/01/16 Time of Evaluation: 11:48 - Subjective Subjective: CHIEF COMPLAINTS TODAY : afebrile NO COMPLAINTS FOR OR AGAIN TODAY s/p incision and drainage of right cheek 08/29, 08/30, 08/[address] ROS. HEENT : N. RT. FACE NEAR LIP DRESSING IN PLACE wound claean +ve cellulitus at site . DRESSING DRY AND CLEAN Resp : No SOB wheezing, cough Cardio : No CP, PND orthopnea GI : No abd. 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 Musculoskel : N Ext. : Pedal pulses intact, no edema or calf pain Derm : N Psych : N. PE. Pt. is alert awake in no distress. V.S As noted in the chart Head ,ear nose,throat and eyes : RT. FACE NEAR LIP DRESSING IN PLACE. WOUND HEALING. . DRESSING DRY AND CLEAN Neck : Supple with normal carotids. Lungs: Clear air entry. Heart : S1 & S2 normal . . No murmur. S4 + Abd : Soft non tender with normal bowel sounds. Neuro : Moves all ext. with no localized deficit. Ext : No edema with intact pulses. Neg. calf tenderness Derm : No rashes or decubitus ulcer. Radiology/Labs . WOUND CULTURE - no growth for 48 hours. WOUND CULTURE-SCN MRSA SCREEN -VE Asssessment : ABSCESS / CYST RT. CHEEK NEAR LIP S/P I & D 08/30/16. 08/31/16 Plan : CONTINUE iv CEFTRIAXONE 1 G EVERY 12 HOURLY. 08/29/16. CONTINUE iv CLEOCIN 600 MG EVERY 8 HOURLY. 08/29/16 PT FOR D/C TODAY DC ON PO AUGMENTIN 875MG BID X 5 DAYS CALLED RESIDENT TO NOTIFY.. Objective - Vital Signs/Intake and Output Vital Signs (last 24 hours): Temp Pulse Resp BP Pulse Ox 98.1 F 47 L 20 115/68 96 09/01/16 08:13 09/01/16 08:13 09/01/16 08:13 09/01/16 08:13 09/01/16 08:13 Intake and Output: 09/01/16 09/01/16 06:59 18:59 Intake Total 1999 Balance 1999 - Medications Medications: Current Medications Hydromorphone HCl (Dilaudid) 1 mg IVP Q6H PRN PRN Reason: Pain, moderate (4-7) Last Admin: 09/01/16 00:35 Dose: 1 mg Ceftriaxone Sodium 1 gm/ (Sodium Chloride) 100 mls @ 100 mls/hr IVPB Q12H [facility] Last Admin: 09/01/16 06:01 Dose: 100 mls/hr Clindamycin Phosphate (Cleocin) 600 mg in 50 mls @ 102 mls/hr IVPB Q8H [facility] Last Admin: 09/01/16 11:09 Dose: 102 mls/hr Sodium Chloride (Sodium Chloride 0.9%) 1,000 mls @ 100 mls/hr IV .Q10H [facility] Last Admin: 09/01/16 11:11 Dose: Not Given Lactated Ringer's (Lactated Ringer's) 1,000 mls @ 150 mls/hr IV .Q6H40M [facility] Last Admin: 09/01/16 08:19 Dose: Not Given Pantoprazole Sodium (Protonix Ec Tab) 40 mg PO DAILY [facility] Last Admin: 09/01/16 11:10 Dose: 40 mg Tramadol HCl (Ultram) 25 mg PO TID PRN PRN Reason: Pain, severe (8-10) - Labs Labs: 09/01/16 07:07 09/01/16 07:07 PT 11.4 SECONDS (9.7-12.2) 08/29/16 17:02 INR 1.0 08/29/16 17:02 APTT 35 SECONDS (21-34) H 08/29/16 17:02
[2016-09-01 12:53] VITALS: PULSE 58
== END 2016-09-01 13:15 | disposition home or self-care (01) | DRG 264 ==
LOC: C.ER 15:33 → C.9E 17:18 → C.3T 20:20 → OBSVTOIN 08-31 16:14
PROVIDERS: ADMIT Surgery; ATTEND Surgery
PROC: 0J910ZZ Drainage of Face Subcutaneous Tissue and Fascia, Open Approach (ICD-10-PCS; principal; 2016-08-29)
PROC: 0HB1XZZ Excision of Face Skin, External Approach (ICD-10-PCS; 2016-08-30)
DX: L02.01 Cutaneous abscess of face (principal); F17.210 Nicotine dependence, cigarettes, uncomplicated